=== PATIENT | male | born 1985 | race Caucasian/White ===

== ENCOUNTER 2019-11-01 10:51 | Emergency (ER) | payer OTHER, SELFPAY ==
[2019-11-01 10:53] VITALS: BP 157/103; PULSE 74; RESP 16; TEMP 36.7; O2SAT 98; BMI 31.1
--- NOTE | 2019-11-01 11:04 | CT_ITS ---
STUDY: CT ABDOMEN AND PELVIS WITHOUT CONTRAST REASON FOR EXAM: Male, 34 years old. PT STATED LEFT SIDE ABDOM PAIN RADIATION DOSAGE (If Supplied By Facility): CTDIvol = ( 8.51 ) mGy, DLP = ( 450.56 ) mGycm TECHNIQUE: Transaxial images were obtained from the dome of the diaphragm to the symphysis pubis without oral contrast, and without intravenous contrast. Sagittal and coronal images were reconstructed. Individualized dose optimization techniques were used for this CT. COMPARISON: None. FINDINGS: The visualized lung bases are unremarkable. The visualized portions of the heart are within normal limits. Normal liver. Normal gallbladder and extrahepatic biliary system. Normal spleen. Normal pancreas. Normal bilateral adrenal glands. Normal right kidney. There is a 3.2 mm calculus in the proximal portion of the left ureter causing mild degree of left hydronephrosis. 3 mm nonobstructive calculus in the mid pole calyx of the left kidney. There is a small hiatal hernia. Normal small intestine. Normal colon. The appendix is visualized and appears normal. Normal abdominal aorta. Normal inferior vena cava. There is borderline retroperitoneal lymphadenopathy with enlarged nodes no greater than 10mm in the short axis diameter. Normal urinary bladder. Normal abdominal wall. Mild degree of disc space narrowing at the L5-S1 level CT/Abdomen/Pelvis without Cont IMPRESSION: 3.2 mm calculus in the proximal portion of the left ureter causing mild degree of left hydronephrosis. 3 mm calculus in the midpole calyx of the left kidney. Electronically Signed: Charlie Muhammad, at 12:08 EDT , Service support ,
[2019-11-01 12:19] LABS: Bacteria 0 SEEN /hpf (None Seen); Mucous, Urine 0 SEEN /hpf (<or=2+); Squamous Epithelial Cells - UA 0 SEEN /hpf (0-5)
--- NOTE | 2019-11-01 12:19 | ED.VISSUMM ---
- ER Visit Summary Date of Service: 11/01/19 Chief Complaint: Left flank pain History of Present Illness: The patient is a 34 M with no primary care physician. Reports left flank pain that began yesterday. Is gradually gotten worse. Is a dull pain is 6 out of 10 at worst 3-10 currently. It is worsened by sitting upright or bearing down. Is relieved by laying flat. He said nausea vomiting. No diarrhea. His last bowel was today. No hematochezia. No dysuria or frequency. Physical Examination: Vitals: Stable. Afebrile. General: Well-nourished and well-developed. Head: Normocephalic atraumatic. Neck: Supple, no lymphadenopathy. No JVD. Nontender. Cardiovascular: Regular rate and rhythm. No murmurs. Respiratory: No respiratory distress. Clear to auscultation bilaterally. Abdominal: Soft, nontender, nondistended, normal bowel sounds. No guarding, rebound, or peritoneal signs. Back: Nontender. Extremities: Nontender, no edema. Skin: Normal color, no rash. Neurologic: Alert and oriented ?3. Cranial nerves II through XII are intact. Normal strength and sensation. Psych: Normal affect. Test Results: Clinical Impression(s) from Imaging Studies Abdomen/Pelvis CT 11/01/19 11:04 IMPRESSION: 3.2 mm calculus in the proximal portion of the left ureter causing mild degree of left hydronephrosis. 3 mm calculus in the midpole calyx of the left kidney. Electronically Signed: Charlie Muhammad, at 12:08 EDT , Service support , Emergency Department Course and Treatment: Patient had an IV placed. He was given a liter normal saline. He refused pain or nausea medications. He is resting comfortably. Treatment Plan: Patient will be discharged with [place], naproxen, and Zofran. Instructed to follow-up with Dr. morse now in 1 week if not improving. Return to the emergency department for any worsening symptoms. Disposition: To home in improved and stable condition. Impression: 1. Left ureterolithiasis. This note was generated with [employer] software. It may contain incorrect words, spelling, and punctuation that were not noted in review of the chart prior to signing ED Disposition - Plan for ED Patient: Instructions: ED Renal Stone w Colic Prescriptions: Naproxen [Naprosyn] 500 mg PO BID #14 tablet Hydrocodone Bitart/Apap 5-325 [Glyndon 5MG-325MG] 1 tablet PO Q4H PRN PRN 2 Days #10 tablet PRN Reason: Pain Ondansetron [Zofran Odt] 4 mg PO Q8H PRN PRN #10 tablet PRN Reason: Nausea Referrals: Alonso Mcpherson MD [STAFF PHYSICIAN] - 1 Week if not improving
[2019-11-01 12:25] LABS: Color, Urine Yellow (Yellow); Glucose, Dipstick Normal (Normal); Ketone-Dipstick Negative (Negative); Leukocyte Esterase-Dipstick Negative /ul (Negative); Nitrite-Dipstick Negative (Negative); Occult Blood-Urine 250 /ul (Negative); Protein-Dipstick 30 mg/dl (Negative); Urine Bilirubin Dipstick Negative (Negative); Urine Clarity Sl. Cloudy (Clear); Urine Urobilinogen Normal (Normal)
[2019-11-01 12:30] LABS: Red Blood Cells-Urine > 100 SEEN /hpf (0-5); White Blood Cells 0-5 SEEN /hpf (0-5)
[2019-11-01 13:04] VITALS: RESP 18
== END 2019-11-01 13:05 | disposition home or self-care (01) ==
LOC: ED 12:02
PROVIDERS: Emergency Provider Emergency Medicine
DX: N13.2 Hydronephrosis with renal and ureteral calculous obstruction (principal); E11.9 Type 2 diabetes mellitus without complications; Z79.84 Long term (current) use of oral hypoglycemic drugs
CPT/HCPCS: 74176; 81001; 99283; A4216